=== PATIENT | female | born 1990 ===

== ENCOUNTER 2023-09-02 05:30 | Inpatient (IN) | payer BC ==
[2023-09-02 06:30] VITALS: BMI 39.2
[2023-09-02] MEDS ORDERED: Promethazine HCl 25 MG/ML VIAL IM PRN ×3 (06:57→22:36)
[2023-09-02] MEDS ORDERED: Misoprostol 200 MCG TAB PR PRN (06:57)
[2023-09-02] MEDS ORDERED: fentaNYL 50 mcg/mL 1 mL Vial SLOW IVP PRN ×2 (06:57→22:36)
[2023-09-02] MEDS ORDERED: Lidocaine 1% (PF) 30 ML VIAL SC PRN (06:57)
[2023-09-02] MEDS ORDERED: Carboprost 250 MCG/ML AMP IM PRN (06:57)
[2023-09-02] MEDS ORDERED: Methylergonovine 0.2 MG/ML VIAL IM PRN (06:57)
[2023-09-02] MEDS ORDERED: Ibuprofen 800 MG TAB PO PRN (06:57)
[2023-09-02] MEDS ORDERED: Ondansetron PF 4 MG/2 ML Vial IVP PRN ×4 (06:57→22:36)
[2023-09-02] MEDS ORDERED: Diphenoxylate HCl/Atropine Tablet PO PRN (06:57)
[2023-09-02] MEDS ORDERED: Acetaminophen 500 MG TAB PO PRN (06:57)
[2023-09-02] MEDS ORDERED: HYDROcodone/Acetaminophen 5/325 mg Tablet PO PRN (06:57)
[2023-09-02] MEDS ORDERED: hydrALAZINE 20 MG/ML VIAL SLOW IVP PRN (06:57)
[2023-09-02] MEDS ORDERED: Oxytocin 30 units/NS 500 ML 500 ML IV SCH (07:00)
[2023-09-02] MEDS: Lactated Ringer's 1,000 ML IV SCH (07:34)
[2023-09-02] MEDS: Penicillin G Potassium 5 MILL.UNITS in Sodium Chloride 0.9% 100 ML IVPB SCH (07:35)
[2023-09-02] MEDS: Oxytocin 30 units/NS 500 ML 500 ML IV SCH (07:35)
[2023-09-02 07:39] LABS: Mean Corpuscular HGB CONC 34.3 g/dL (32.0-36.0); Mean Corpuscular Hemoglobin 30.5 pg (27.0-33.0); Mean Corpuscular Volume 88.8 fl (81.6-98.3); Mean Platelet Volume 10.6 fl (7.4-10.4); Platelet Count 285 10x3/uL (150-450); RBC Distribution Width 13.3 % (11.5-14.5); Red Blood Cell (RBC) Count 3.94 10x6/uL (3.90-5.03); White Blood Cell (WBC) Count 9.9 10x3/uL (3.5-10.5)
[2023-09-02 07:46] LABS: ALT (SGPT) 35 U/L (8-55); AST (SGOT) 31 U/L (5-34); Albumin 3.1 g/dL (3.5-5.0); Alkaline Phosphatase 235 U/L (40-110); Anion Gap 14 mmol/L (10-20); BUN (Urea Nitrogen) 17 mg/dL (7.0-18.7); Bilirubin, Total 0.3 mg/dL (0.2-1.2); Calc. Creatinine Clearance 186 mL/min (70-130); Calcium 8.6 mg/dL (7.8-10.44); Carbon Dioxide 20 mmol/L (22-29); Chloride 107 mmol/L (98-107); Estimated GFR 122; Globulin 2.8 g/dL (2.4-3.5); Glucose 111 mg/dL (70-105); Potassium 3.9 mmol/L (3.5-5.1); Protein, Total 5.9 g/dL (6.0-8.3); Sodium 137 mmol/L (136-145)
[2023-09-02] MEDS ORDERED: Bupivacaine 0.25% HCL 30 ML VIAL ONE (08:00)
[2023-09-02 08:05] LABS: HBSAg Index 0.22 S/CO (0-0.99); Hep B Surf Ag - L&D Non-Reactive S/CO (NonReactive)
[2023-09-02 08:09] LABS: Syphilis Antibody Nonreactive (Nonreactive); Syphilis Antibody Index 0.09 S/CO (<1.00 Non-Reactive)
[2023-09-02] MEDS: Penicillin G 2.5 MILL.units 2.5 MILL.UNITS in Premix 1 BAG IVPB SCH (11:37)
[2023-09-02] MEDS: fentaNYL 2 mcg/Ropivacaine 0.2% Epidural 100 ML CADD EPIDURAL SCH (12:11)
[2023-09-02] MEDS ORDERED: Lactated Ringer's 500 ML IV PRN (12:15)
[2023-09-02] MEDS ORDERED: diphenhydrAMINE 50 MG/ML VIAL IVP PRN ×2 (12:15→22:36)
[2023-09-02] MEDS ORDERED: Acetaminophen 325 MG TAB PO PRN (12:15)
[2023-09-02] MEDS ORDERED: Moisturizing Cream (Eucerin) 113 GM JAR TOP PRN ×2 (12:15→22:36)
[2023-09-02] MEDS ORDERED: ePHEDrine Sulfate 50 MG/10 ML VIAL SLOW IVP PRN (12:15)
[2023-09-02] MEDS ORDERED: Communication Order-Pharmacy FS SCH ×2 (12:15→22:45)
[2023-09-02] MEDS ORDERED: Naloxone HCl 0.4 mg/ml Vial IVP PRN ×4 (12:15→22:36)
[2023-09-02] MEDS ORDERED: Bicitra 30 ML UDCUP PO PRN (21:18)
[2023-09-02] MEDS ORDERED: Famotidine/PF 20 mg/2ml Vial SLOW IVP PRN (21:18)
[2023-09-02] MEDS ORDERED: Clindamycin/D5W 900 MG in Premix 1 BAG IVPB SCH (21:30)
[2023-09-02] MEDS: Azithromycin 500 MG in Sodium Chloride 0.9% 250 ML 250 ML IVPB SCH (21:35)
[2023-09-02] MEDS: CEFAZOLIN 2 GM in Sodium Chloride 0.9% 100 ML IVPB SCH (21:36)
[2023-09-02] MEDS ORDERED: Meperidine HCl/PF 25 MG (1 mL) VIAL SLOW IVP PRN (22:36)
[2023-09-02] MEDS ORDERED: Naloxone HCl 0.4 mg/ml Vial IV PRN (22:36)
[2023-09-02] MEDS ORDERED: Promethazine HCl 25 MG SUPP PR PRN (22:36)
[2023-09-03] MEDS ORDERED: hydrALAZINE 20 MG/ML VIAL SLOW IVP PRN (01:22)
[2023-09-03] MEDS ORDERED: Boostrix 0.5 ML (Tdap) VIAL (>/=7 yrs of age) IM ONE (01:22)
[2023-09-03] MEDS ORDERED: Bisacodyl 10 MG SUPP PR PRN (01:22)
[2023-09-03] MEDS ORDERED: Promethazine HCl 25 MG/ML VIAL IM PRN (01:22)
[2023-09-03] MEDS ORDERED: Ondansetron PF 4 MG/2 ML Vial IVP PRN (01:22)
[2023-09-03] MEDS ORDERED: diphenhydrAMINE 25 MG CAP PO PRN (01:22)
[2023-09-03] MEDS ORDERED: Lanolin Ointment 7 GM TUBE TOP PRN (01:22)
[2023-09-03 05:50] LABS: Hematocrit 32.7 % (34.9-44.5); Mean Corpuscular HGB CONC 33.6 g/dL (32.0-36.0); Mean Corpuscular Volume 89.1 fl (81.6-98.3); Mean Platelet Volume 10.5 fl (7.4-10.4); Platelet Count 274 10x3/uL (150-450); RBC Distribution Width 13.4 % (11.5-14.5); Red Blood Cell (RBC) Count 3.67 10x6/uL (3.90-5.03); White Blood Cell (WBC) Count 16.9 10x3/uL (3.5-10.5)
[2023-09-03] MEDS: Ketorolac Tromethamine 30 MG (1 mL) VIAL IVP SCH (07:32)
[2023-09-03] MEDS: Docusate 100 MG CAP PO SCH (09:18)
[2023-09-03] MEDS: Prenatal Vitamin 1 TAB PO SCH (09:19)
[2023-09-03] MEDS ORDERED: Meperidine HCl/PF 25 MG (1 mL) VIAL IM PRN (10:45)
[2023-09-03] MEDS ORDERED: Zolpidem Tartrate 5 MG TAB PO PRN (10:45)
[2023-09-03] MEDS ORDERED: Ibuprofen 800 MG TAB PO PRN (12:00)
[2023-09-03] MEDS: Ibuprofen 800 MG TAB PO SCH (12:55)
[2023-09-03] MEDS: Acetaminophen 325 MG TAB PO PRN (12:55)
[2023-09-03] MEDS: Ferrous Sulfate 325 MG TAB PO SCH (12:57)
[2023-09-03] MEDS: Dexamethasone 4 mg/ml Vial ONE (19:06)
[2023-09-03] MEDS: Lidocaine 2% MPF 10 ML AMP (For Epidural Use) ONE (19:06)
[2023-09-03] MEDS: ePHEDrine Sulfate 50 MG/10 ML VIAL ONE (19:06)
[2023-09-03] MEDS: diphenhydrAMINE 50 MG/ML VIAL ONE ×2 (19:06)
[2023-09-03] MEDS: Sodium Chloride 0.9% 10 ML ONE (19:06)
[2023-09-03] MEDS: Ondansetron PF 4 MG/2 ML Vial ONE (19:06)
[2023-09-03] MEDS: Dexmedetomidine 200 MCG/2 ML VIAL ONE (19:06)
[2023-09-03] MEDS: Oxytocin 10 UNITS/ML VIAL ONE (19:06)
[2023-09-03] MEDS: Penicillin G Potassium 5 MILL.UNITS VIAL ONE (19:07)
[2023-09-03] MEDS: Morphine PF 10 MG/10 ML VIAL ONE (19:07)
[2023-09-03] MEDS: fentaNYL/Ropivacaine Epidural 100 ML ONE (19:07)
[2023-09-03] MEDS: Ketorolac Tromethamine 30 MG (1 mL) VIAL ONE (19:07)
[2023-09-04] MEDS: HYDROcodone/Acetaminophen 5/325 mg Tablet PO PRN (07:41)
[2023-09-04] MEDS: Simethicone Chewable 80 MG TAB PO PRN (08:07)
[2023-09-05 07:44] VITALS: BP 125/63; TEMP 97.4
[2023-09-05] MEDS: HYDROcodone/Acetaminophen 5/325 mg Tablet PO PRN (09:07)
== END 2023-09-05 14:30 | disposition home or self-care (01) | DRG 786 ==
LOC: CSHLD 05:51 → CSHPP 09-03 01:20
PROVIDERS: ADMIT Student in an Organized Health Care Education/Training Program; ATTEND Student in an Organized Health Care Education/Training Program
PROC: 10D00Z1 Extraction of Products of Conception, Low, Open Approach (ICD-10-PCS; principal; 2023-09-02)
DX: O26.643 Intrahepatic cholestasis of pregnancy, third trimester (principal); K83.1 Obstruction of bile duct; Z3A.37 37 weeks gestation of pregnancy; Z37.0 Single live birth; Z88.2 Allergy status to sulfonamides; O99.824 Streptococcus B carrier state complicating childbirth; O62.1 Secondary uterine inertia
CPT/HCPCS: 36415; 51702; 80053; 85027; 86780; 86850; 86900; 86901; 87340; J0456; J0665; J1100; J1200; J1885; J2274; J2405; J2540; J2590; J3490; J7050; J7120